=== PATIENT | male | born 1970 | race Hispanic/Latino ===

== ENCOUNTER 2019-05-05 09:49 | Emergency (ER) | payer BC ==
[~2019-05-05] VITALS: Ht 165.1 cm; Wt 99.8 kg
[~2019-05-05 09:49] MED LIST: HYDROCODON-ACE1 EAC3 PO
[2019-05-05] MEDS ORDERED: KETOROLAC TROMETHAMINE 30 MG/ML VIAL IV NR (10:00)
--- NOTE | 2019-05-05 10:05 | NUR ---
ekg done in triage
[2019-05-05] MEDS ORDERED: SODIUM CHLORIDE 0.9% 1000ML 1,000 ML IV STA (10:07)
[2019-05-05] MEDS ORDERED: LIDOCAINE VISC 2% SOLN 15 ML UDC PO NR (10:15)
[2019-05-05] MEDS ORDERED: PANTOPRAZOLE 40 MG 10ML VIAL IV NR (10:15)
[2019-05-05] MEDS ORDERED: MAGNESIUM/ALUMINUM/SIMETHICONE 30 ML UDC PO NR (10:15)
[2019-05-05] MEDS ORDERED: ONDANSETRON HCL INJ 2MG/ML 2ML 2 MG/ML VIAL IV NR (10:15)
[2019-05-05] MEDS: BELLADONNA ALK/PHENOBARBITAL 5 ML UDC PO SCH ×2 (10:33→10:34)
[2019-05-05 10:44] LABS: BASOPHILS # (AUTO) 0.1 (0.0-0.1); BASOPHILS % 0.6 % (0.0-1.0); EOSINOPHILS % 0.2 % (0.0-6.0); HEMATOCRIT 47.3 % (38.2-49.6); LYMPHOCYTES # (AUTO) 1.5 (1.0-3.2); MEAN CORPUSCULAR HEMOGLOBIN 28.4 pg (28-32); MEAN CORPUSCULAR HGB CONC 33.8 g/dL (31-35); MONOCYTES # (AUTO) 0.2 (0.2-0.8); NEUTROPHILS # (AUTO) 6.2 (2.1-6.9); NEUTROPHILS % 76.5 % (38.7-80.0); PLATELET COUNT 237 x10e3/uL (140-360); RED BLOOD COUNT 5.63 x10e6/uL (4.3-5.7)
[2019-05-05 11:06] LABS: ALANINE AMINOTRANSFERASE 69 IU/L (0-55); ALBUMIN 4.8 g/dL (3.5-5.0); ALBUMIN/GLOBULIN RATIO 1.7 (0.8-2.0); ALKALINE PHOSPHATASE 61 IU/L (40-150); AMYLASE 53 U/L (25-125); ANION GAP 12.8 mmol/L (8-16); BLOOD UREA NITROGEN 13 mg/dL (7-26); BUN/CREATININE RATIO 13 (6-25); CALCIUM 9.7 mg/dL (8.4-10.2); CARBON DIOXIDE 24 mmol/L (22-29); CHLORIDE 108 mmol/L (98-107); CREATININE, SERUM 0.97 mg/dL (0.72-1.25); EST GLOMERULAR FILTRATION RATE > 60 ML/MIN (60-); GLUCOSE 130 mg/dL (74-118); LIPASE 29 U/L (8-78); POTASSIUM 4.8 mmol/L (3.5-5.1); SODIUM 140 mmol/L (136-145)
--- NOTE | 2019-05-05 12:19 | NUR ---
BUSINESS MANAGEMENT CONSULTANT AT BEDSIDE
--- NOTE | 2019-05-05 12:57 | Diagnostic Imaging Report ---
EXAM: Gallbladder Ultrasound INDICATION: ^ABD PAIN ^Y COMPARISON: None. TECHNIQUE: Transverse and longitudinal images of the gallbladder were obtained. FINDINGS: Liver: Limited view of the liver demonstrates hepatic steatosis Gallbladder: Stones/Sludge: None Wall: 0.2 cm Appearance: No wall thickening, pericholecystic fluid or hydrops. Sonographic Anaya's Sign: Negative Bile Ducts: Intrahepatic Ducts: No dilatation Extrahepatic Ducts: Common bile duct measures 0.4 cm, no dilatation Free Fluid: No ascites or pleural effusion IMPRESSION: Normal gallbladder. Hepatic steatosis. Signed by: Alexandre Diaz MD on 05/05/2019 12:55 PM
[2019-05-05] MEDS ORDERED: MORPHINE SULFATE INJ 4 MG/ML INJ 1ML IV NR (13:15)
--- NOTE | 2019-05-05 13:45 | NUR ---
2ND SET CARDIAC ENZYMES COMPLETED, TAKEN TO LAB
[2019-05-05 14:01] LABS: CREATINE KINASE 293 IU/L (30-200)
[2019-05-05] MEDS ORDERED: SODIUM CHLORIDE 0.9% 50ML 50 ML ONE (14:17)
[2019-05-05] MEDS ORDERED: IOPAMIDOL 370 MG/ML 200 ML INFUS..BTL INJ ONE (14:17)
--- NOTE | 2019-05-05 15:08 | Diagnostic Imaging Report ---
EXAM: CT Abdomen and Pelvis WITH contrast INDICATION: ruq pain COMPARISON: None. TECHNIQUE: Abdomen and pelvis were scanned utilizing a multidetector helical scanner from the lung base to the pubic symphysis after administration of IV contrast. Coronal and sagittal reformations were obtained. Dose modulation, iterative reconstruction, and/or weight based adjustment of the mA/kV was utilized to reduce the radiation dose to as low as reasonably achievable. Routine protocol was performed. Scan was performed when during portal venous phase. IV CONTRAST: 150 mL of Omnipaque 300 ORAL CONTRAST: Water COMPLICATIONS: None RADIATION DOSE: Total DLP: 883.76 mGy-cm Estimated effective dose: (DLP x 0.015 x size factor) mSv CTDIvol has been reviewed. It is below the limits set by the Radiation Protocol Committee (RPC). FINDINGS: LINES and TUBES: None. LOWER THORAX: There is left basilar subsegmental atelectasis. HEPATOBILIARY: The liver is diffuse hypodense compared to the spleen, consistent with diffuse hepatic diffuse hepatic steatosis. No focal hepatic lesions. No biliary ductal dilation. GALLBLADDER: No radio-opaque stones or sludge. No wall thickening. SPLEEN: No splenomegaly. PANCREAS: No focal masses or ductal dilatation. ADRENALS: No adrenal nodules KIDNEYS/URETERS: Kidneys enhance symmetrically. No hydronephrosis. No cystic or solid mass lesions. No stones. GI TRACT: No abnormal distention, wall thickening, or evidence of bowel obstruction. Appendix is normal. PELVIC ORGANS/BLADDER: Unremarkable. LYMPH NODES: No lymphadenopathy. VESSELS: Unremarkable. PERITONEUM / RETROPERITONEUM: No free air or fluid. BONES: Old fracture deformity of the left ischium. Screw fixation of left sacroiliac joint. SOFT TISSUES: Unremarkable. IMPRESSION: Hepatic steatosis with no focal lesion. Signed by: Alexandre Diaz MD on 05/05/2019 3:05 PM
[2019-05-05] MEDS ORDERED: DICYCLOMINE HCL 20 MG/2 ML VIAL IM ONE (15:30)
== END 2019-05-05 16:09 | disposition home or self-care (01) ==
LOC: ER 09:49
DX: R10.11 Right upper quadrant pain (principal); R11.0 Nausea
CPT/HCPCS: 36415; 74177; 76705; 80053; 82150; 82550; 82553; 83690; 84484; 85025; 93005; 99284; C9113; J0500; J1885; J2270; J2405; J7030; Q9967

== ENCOUNTER → 2019-05-14 | Outpatient (CLI) | payer BC ==
--- NOTE | 2019-05-14 20:08 | Diagnostic Imaging Report ---
HEPATOBILIARY SCAN INDICATION: Upper abdominal pain Report: Following the administration of 6.6 mCi of Tc-99m mebrofenin, dynamic images of the abdomen in the anterior projection were obtained through 60 minutes. Additional static images were obtained at 1.5, 2 and 2.5 hours. Perfusion of the liver is normal. Extraction of tracer from the blood pool by the liver parenchyma is normal. Tracer appears promptly with in the biliary tract. Tracer is seen in the small bowel by 35 minutes post injection of the radiotracer. The gallbladder does not fill during the initial 60-minute dynamic sequence and does not fill through 2.5 hours. Impression: Absence of filling of the gallbladder through 2.5 hours post administration of the radiotracer supports the clinical diagnosis of chronic and/or acute cholecystitis. Signed by: Dr. Darline Ireland M.D. on 05/14/2019 8:05 PM
== END ==
LOC: NM 12:32
PROVIDERS: ATTEND Internal Medicine Gastroenterology
DX: R10.10 Upper abdominal pain, unspecified (principal)
CPT/HCPCS: 78226; A9537; 78227

== ENCOUNTER 2019-05-25 15:21 | Inpatient (IN) | payer BC ==
[2019-05-24 14:48] LABS: BASOPHILS # (AUTO) 0.1 (0.0-0.1); BASOPHILS % 0.6 % (0.0-1.0); EOSINOPHILS # (AUTO) 0.3 (0.0-0.4); EOSINOPHILS % 2.4 % (0.0-6.0); HEMATOCRIT 42.2 % (38.2-49.6); HEMOGLOBIN 14.3 g/dL (14.0-18.0); LYMPHOCYTES # (AUTO) 3.5 (1.0-3.2); LYMPHOCYTES % 32.7 % (18.0-39.1); MEAN CORPUSCULAR HEMOGLOBIN 28.3 pg (28-32); MEAN CORPUSCULAR HGB CONC 33.9 g/dL (31-35); MEAN CORPUSCULAR VOLUME 83.4 fL (81-99); MONOCYTES # (AUTO) 0.5 (0.2-0.8); MONOCYTES % 4.6 % (4.4-11.3); NEUTROPHILS # (AUTO) 6.4 (2.1-6.9); NEUTROPHILS % 59.2 % (38.7-80.0); PLATELET COUNT 371 x10e3/uL (140-360); RED BLOOD COUNT 5.06 x10e6/uL (4.3-5.7); RED CELL DISTRIBUTION WIDTH 12.3 % (11.7-14.4)
[2019-05-24 15:05] LABS: ALANINE AMINOTRANSFERASE 44 IU/L (0-55); ALBUMIN 4.3 g/dL (3.5-5.0); ALBUMIN/GLOBULIN RATIO 1.3 (0.8-2.0); ALKALINE PHOSPHATASE 66 IU/L (40-150); BLOOD UREA NITROGEN 16 mg/dL (7-26); BUN/CREATININE RATIO 20 (6-25); CALCIUM 9.6 mg/dL (8.4-10.2); CARBON DIOXIDE 24 mmol/L (22-29); CHLORIDE 105 mmol/L (98-107); EST GLOMERULAR FILTRATION RATE > 60 ML/MIN (60-); GLUCOSE 86 mg/dL (74-118); SODIUM 137 mmol/L (136-145)
--- NOTE | 2019-05-24 15:31 | Diagnostic Imaging Report ---
EXAMINATION: CHEST 2 VIEWS INDICATION: ^PREOP COMPARISON: None FINDINGS: PA and lateral views TUBES and LINES: None. LUNGS: Lungs are well inflated. Lungs are clear. There is no evidence of pneumonia or pulmonary edema. PLEURA: No pleural effusion or pneumothorax. HEART AND MEDIASTINUM: The cardiomediastinal silhouette is unremarkable. BONES AND SOFT TISSUES: No acute osseous lesion. Soft tissues are unremarkable. UPPER ABDOMEN: No free air under the diaphragm. IMPRESSION: No acute thoracic radiographic abnormality. Signed by: Desean Acevedo MD on 05/24/2019 3:28 PM
[~2019-05-25] VITALS: Ht 165.1 cm; Wt 99.1 kg
[~2019-05-25 15:21] MED LIST changes: +BUPIVACAINE 0.25% 30ML SDV INJ ONE; +DEXAMETHASONE SOD PHOS INJ 4 MG/ML VIAL ONE; +FENTANYL CITRATE/PF 100MCG/2 ML INJ ONE; +HYDROMORPHONE 1MG/1ML INJ IV PRN; +LIDOCAINE HCL 2% LOCAL INJ 5 ML SDV VIAL INJ ONE; +MIDAZOLAM HCL 2 MG/2 ML VIAL ONE; +NAPROXEN250 MG PO; +NEXIUM40 MG PO; +ONDANSETRON HCL INJ 2MG/ML 2ML 2 MG/ML VIAL IV PRN; +ONDANSETRON HCL INJ 2MG/ML 2ML 2 MG/ML VIAL ONE; +PROPOFOL IV EMULSION 10 MG/ML 20 ML VIAL ONE; +ROCURONIUM BROMIDE 10 MG/ML 5ML VIAL ONE; +SEVOFLURANE INHAL SOLN 250 ML PEN BTL ONE; +SIMVASTATIN20 MG PO; +SUGAMMADEX SODIUM 200 MG/2 ML VIAL IV ONE
--- OUTSIDE RECORDS SUMMARY | 2019-05-25 15:24 | XMS REPORT ---
Author Author [facility] Address Unknown Phone Unavailable Care Team Providers Care Clinical Transplant Coordinator Name Role Phone Lelo CORONA Unavailable Unavailable LA[facility] JOSEPH Unavailable Unavailable Priyank DOMINGUEZ LAIDANDRE Unavailable Unavailable Problems This patient has no known problems. Allergies, Adverse Reactions, Alerts This patient has no known allergies or adverse reactions. Medications This patient has no known medications. Results Test Description Test Time Test Comments Text Results Atomic Results Result Comments CHEST 2 VIEWS 2019-05-24 15:26:00 [place] [address] Patient Name: SAIGE HENDRICKSON MR #: [id number] : 1970 Age/Sex: 49/M Req #: [id number] Adm Physician: Ordered by: ZAHIRA CORONA MD Report #: [id number] Location: OR Room/Bed: Procedure: [id number] DX/CHEST 2 VIEWS Exam Date: Exam Time: REPORT STATUS: Signed EXAMINATION: CHEST 2 VIEWS INDICATION: PREOP COMPARISON: None FINDINGS: PA and lateral views TUBES and LINES: None. LUNGS: Lungs are well inflated. Lungs are clear. There is no evidence of pneumonia or pulmonary edema. PLEURA: No pleural effusion or pneumothorax. HEART AND MEDIASTINUM: The cardiomediastinal silhouette is unremarkable. BONES AND SOFT TISSUES: No acute osseous lesion. Soft tissues are unremarkable. UPPER ABDOMEN: No free air under the diaphragm. IMPRESSION: No acute thoracic radiographic abnormality. Signed by: Brandon Fernandes MD on 05/24/2019 3:28 PM Dictated By: BRANDON FERNANDES MD 27 Transcribed By: JESSE on 05/24/191527 COPY TO: ZAHIRA CORONA MD HEPTOBILIARY 2019-05-14 20:02:00 [place] [address] Patient Name: SAIGE HENDRICKSON MR #: [id number] : 1970 Age/Sex: 49/M Req #: [id number] Adm Physician: Ordered by: LA[place] JO[facility] MD Report #: [id number] Location: ID Room/Bed: Procedure: [id number] NM/HEPTOBILIARY Exam Date: 05/14/19 Exam Time: 1343 REPORT STATUS: Signed HEPATOBILIARY SCAN INDICATION: Upper abdominal pain Report: Following the administration of 6.6 mCi of Tc-99m mebrofenin, dynamic images of the abdomen in the anterior projection were obtained through 60 minutes. Additional static images were obtained at 1.5, 2 and 2.5 hours. Perfusion of the liver is normal. Extraction of tracer from the blood pool by the liver parenchyma is normal. Tracer appears promptly with in the biliary tract. Tracer is seen in the small bowel by 35 minutes post injection of the radiotracer. The gallbladder does not fill during the initial 60- minute dynamic sequence and does not fill through 2.5 hours. Impression: Absence of filling of the gallbladder through 2.5 hours post administration of the radiotracer supports the clinical diagnosis of chronic and/or acute cholecystitis. Signed by: Dr. Dinora Ireland M.D. on 05/14/2019 8:05 PM Dictated By: DINORA IRELAND MD 04 Transcribed By: JESSE on 05/14/192004 COPY TO: LA[facility] JO[facility] MD CT ABDOMEN/PELVIS W 2019-05-05 14:57:00 [place] [address] Patient Name: SAIGE HENDRICKSON MR #: [id number] : 1970 Age/Sex: 48/M Req #: [id number] Adm Physician: Ordered by: ROBBY GONZALEZ AREA SUPERVISOR Report #: [id number] Location: ER Room/Bed: Procedure: [id number] CT/CT ABDOMEN/PELVIS W Exam Date: 05/05/19 Exam Time: 1355 REPORT STATUS: Signed EXAM: CT Abdomen and Pelvis WITH contrast INDICAT ION: ruq pain COMPARISON: None. TECHNIQUE: Abdomen and pelvis were scanned utilizing a multidetector helical scanner from the lung base to the pubic symphysis after administration of IV contrast. Coronal and sagittal reformations were obtained. Dose modulation, iterative reconstruction, and/or weight based adjustment of the mA/kV was utilized to reduce the radiation dose to as low as reasonably achievable. Routine protocol was performed. Scan was performed when during portal venous phase. IV CONTRAST: 150 mL of Omnipaque 300 ORAL CONTRAST: Water COMPLICATIONS: None RADIATION DOSE: Total DLP: 883.76 mGy-cm Estimated effective dose: (DLP x 0.015 x size factor) mSv CTDIvol has been reviewed. It is below the limits set by the Radiation Protocol Committee (RPC). FINDINGS: LINES and TUBES: None. LOWER THORAX: There is left basilar subsegmental atelectasis. HEPATOBILIARY: The liver is diffuse hypodense compared to the spleen, consistent with diffuse hepatic diffuse hepatic steatosis. No focal hepatic lesions. No biliary ductal dilation. GALLBLADDER: No radio-opaque stones or sludge. No wall thickening. SPLEEN: No splenomegaly. PANCREAS: No focal masses or ductal dilatation. ADRENALS: No adrenal nodules KIDNEYS/URETERS: Kidneys enhance symmetrically. No hydronephrosis. No cystic or solid mass lesions. No stones. GI TRACT: No abnormal distention, wall thickening, or evidence of bowel obstruction. Appendix is normal. PELVIC ORGANS/BLADDER: Unremarkable. LYMPH NODES: No lymphadenopathy. VESSELS: Unremarkable. PERITONEUM / RETROPERITONEUM: No free air or fluid. BONES: Old fracture deformity of the left ischium. Screw fixation of left sacroiliac joint. SOFT TISSUES: Unremarkable. IMPRESSION: Hepatic steatosis with no focal lesion. Signed by: Alexandre Rubio MD on 05/05/2019 3:05 PM Dictated By: ALEXANDRE RUBIO MD 1505 Transcribed By: JESSE on 05/05/19 1505 COPY TO: ROBBY GONZALEZ AREA SUPERVISOR GALLBLADDER 2019-05-05 12:52:00 [place] [address] Patient Name: SAIGE HENDRICKSON MR #: [id number] : 1970 Age/Sex: 48/M Req #: [id number] Adm Physician: Ordered by: ROBBY GONZALEZ AREA SUPERVISOR Report #: [id number] Location: ER Room/Bed: Procedure: [id number] US/US GALLBLADDER Exam Date: 05/05/19 Exam Time: 1205 REPORT STATUS: Signed EXAM: Gallbladder Ultrasound INDICATION: ABD PAIN Y COMPARISON: None. TECHNIQUE: Transverse and longitudinal images of the gallbladder were obtained. FINDINGS: Liver: Limited view of the liver demonstrates hepatic steatosis Gallbladder: Stones/Sludge: None Wall: 0.2 cm Appearance: No wall thickening, pericholecystic fluid or hydrops. Sonographic Anaya's Sign: Negative Bile Ducts: Intrahepatic Ducts: No dilatation Extrahepatic Ducts: Common bile duct measures 0.4 cm, no dilatation Free Fluid: No ascites or pleural effusion IMPRESSION: Normal gallbladder. Hepatic steatosis. Signed by: Alexandre Rubio MD on 05/05/2019 12:55 PM Dictated By: ALEXANDRE RUBIO MD 1255 Transcribed By: JESSE on 05/05/19 1255 COPY TO: ROBBY GONZALEZ NP
[2019-05-25] MEDS ORDERED: FENTANYL CITRATE/PF 100MCG/2 ML INJ ONE (15:34)
[2019-05-25 16:10] VITALS: BP 144/89
[2019-05-25] MEDS: SODIUM CHLORIDE 0.9% 1000ML 1,000 ML IV SCH (17:51)
[2019-05-25] MEDS: PIPER-TAZ 3.375 GM 50 ML IV SCH (17:51)
[2019-05-25] MEDS: METRONIDAZOLE 500MG/NS 100ML 100 ML IV SCH ×2 (17:51→23:20)
[2019-05-25] MEDS: PANTOPRAZOLE 40 MG 10ML VIAL IV SCH (17:51)
[2019-05-25] MEDS: ACETAMINOPHEN 1000 MG/100 ML IV PRN (17:52)
[2019-05-25 20:00] VITALS: BP 142/96
--- NOTE | 2019-05-25 21:29 | Operative Report ---
DATE OF PROCEDURE: 05/25/2019 SURGEON: Janak Boothe MD PREOPERATIVE DIAGNOSES: Cholecystitis and cholelithiasis. POSTOPERATIVE DIAGNOSES: Acute purulent cholecystitis and cholelithiasis. OPERATION PERFORMED: Laparoscopic cholecystectomy. ASSISTANTS: Dr. Marc Boothe and LETA Hernandez. ANESTHESIA: General. COMPLICATIONS: None. ESTIMATED BLOOD LOSS: Minimal. DESCRIPTION OF PROCEDURE: With the patient lying in bed in the supine position under good general endotracheal anesthesia, the abdomen was prepped with Betadine solution and draped in the usual manner. A Veress needle was introduced into the umbilicus, and pneumoperitoneum was established without any difficulty. An 11-mm trocar was placed into the umbilicus and a 10-mm video laparoscope was placed into the intra-abdominal cavity. Under direct vision, three 5-mm trocars were placed in the right subcostal region and extra 5-mm trocar was placed in the left upper abdomen. Laparoscopy at this point revealed gallbladder was totally covered with thick fibrous adhesions. These were removed from the top of the gallbladder. The top of the gallbladder could be seen to be thickened and inflamed consistent with acute purulent cholecystitis. The gallbladder was then decompressed with a needle, so that we could grasp it. After this was done, the adhesions to the gallbladder were then slowly and carefully taken down. The duodenum and transverse colon were totally plastered to the gallbladder, but we were nonetheless . We were very careful to make sure that there was no injury. After this was done, a large stone was impacted at the neck of the gallbladder causing all of the inflammatory process, which obviously has been going on for a significant period of time. The peritoneum overlying the neck of the gallbladder was then opened and the cystic duct was identified. The cystic duct was followed to its junction with the common duct. The cystic duct was then circumferentially dissected away from the common duct, doubly clipped, and divided. The cystic artery was similarly doubly clipped and divided. The gallbladder was then slowly and carefully taken off the liver bed using the cautery scissors. The gallbladder bed was very much inflamed. There was not much of posterior wall to the gallbladder, and there was a lot of adhesions, especially towards the top of the gallbladder. The part of the liver was actually entered into, but the gallbladder was totally and completely removed from the liver bed, placed in a pouch, and removed through the umbilicus after enlarging the umbilical incision. Laparoscopy was then again carried out. Hemostasis was ascertained. The whole area was thoroughly irrigated, and all the excess fluid was aspirated. A SurgiSeal was left in the liver bed. A #10 flat Mani-Gonzalez drain was then brought out through the most lateral trocar port and left in the hepatorenal fossa, and the pneumoperitoneum was then evacuated and all the trocars were removed under direct vision. The midline fascia at the umbilicus was then closed with 2 [id number] #0 Vicryl. All layers were infiltrated on the way out with solution of 0.25% Marcaine. The subcutaneous tissue was approximated with 3-0 Vicryl, and the skin was closed with subcuticular 5-0 Vicryl. Benzoin, Steri-Strips, and Band-Aids were applied. The sponge, lap, and needle count was correct. The patient tolerated the procedure well and returned to the recovery room in stable condition. MD JESÚS Aguilar/NURIS /[id number]
[2019-05-25 21:30] VITALS: BP 142/96
[2019-05-26] VITALS (8 sets, daily range): BP systolic 109–138; BP diastolic 61–86
[2019-05-26] MEDS: PIPER-TAZ 3.375 GM 50 ML IV SCH ×4 (00:01→18:30)
[2019-05-26] MEDS: SODIUM CHLORIDE 0.9% 1000ML 1,000 ML IV SCH ×3 (00:49→20:49)
[2019-05-26] MEDS: METRONIDAZOLE 500MG/NS 100ML 100 ML IV SCH ×5 (05:23→23:15)
[2019-05-26 06:30] LABS: BASOPHILS % 0.2 % (0.0-1.0); EOSINOPHILS % 0.1 % (0.0-6.0); HEMATOCRIT 38.9 % (38.2-49.6); HEMOGLOBIN 12.8 g/dL (14.0-18.0); LYMPHOCYTES # (AUTO) 2.1 (1.0-3.2); MEAN CORPUSCULAR HEMOGLOBIN 28.1 pg (28-32); MEAN CORPUSCULAR HGB CONC 32.9 g/dL (31-35); MEAN CORPUSCULAR VOLUME 85.3 fL (81-99); MONOCYTES # (AUTO) 0.7 (0.2-0.8); MONOCYTES % 5.2 % (4.4-11.3); NEUTROPHILS # (AUTO) 9.7 (2.1-6.9); NEUTROPHILS % 77.2 % (38.7-80.0); PLATELET COUNT 353 x10e3/uL (140-360); RED BLOOD COUNT 4.56 x10e6/uL (4.3-5.7); RED CELL DISTRIBUTION WIDTH 12.6 % (11.7-14.4)
[2019-05-26 06:44] LABS: ANION GAP 8.9 mmol/L (8-16); BLOOD UREA NITROGEN 12 mg/dL (7-26); BUN/CREATININE RATIO 15 (6-25); CALCIUM 8.6 mg/dL (8.4-10.2); CARBON DIOXIDE 27 mmol/L (22-29); CHLORIDE 109 mmol/L (98-107); EST GLOMERULAR FILTRATION RATE > 60 ML/MIN (60-); GLUCOSE 111 mg/dL (74-118); POTASSIUM 3.9 mmol/L (3.5-5.1); SODIUM 141 mmol/L (136-145)
--- NOTE | 2019-05-26 07:04 | NUR ---
Received patient lying in bed with eyes open. OLGA drain on RLQ in placed, intact with serosanguineous output noted. Respiration even and unlabored without SOB. Call light in reach.
[2019-05-26] MEDS: ACETAMINOPHEN 1000 MG/100 ML IV PRN (11:16)
--- NOTE | 2019-05-26 12:45 | NUR ---
Ordered given by Dr. Nataliya Boothe to place patient in full liquid diet.
[2019-05-26] MEDS: PANTOPRAZOLE 40 MG 10ML VIAL IV SCH (16:43)
[2019-05-26] MEDS: HYDROCODONE/APAP 7.5MG-325MG 1 EA TAB PO PRN ×2 (18:30→23:15)
--- NOTE | 2019-05-26 19:01 | NUR ---
WALKING ROUNDS PERFORMED, RECEIVED PT SITTING IN RECLINER WITH FAMILY AT SIDE. PT IS AAOX3, RR EVEN AND NON-LABORED, ON ROOM AIR. NO S/SX OF DISTRESS NOTED. DRESSING TO ANTERIOR ABD NOTED TO BE CDI. LEFT PT SITTING IN RECLINER, CALL LIGHT AND PHONE WITHIN REACH.
--- NOTE | 2019-05-26 19:08 | NUR ---
Report given to second shift supervisor. Respiration even and unlabored without SOB. Call light in reach.
--- NOTE | 2019-05-26 20:21 | NUR ---
NOTIFIED RESPIRATORY OF NEED FOR INCENTIVE SPIROMETER.
--- NOTE | 2019-05-26 21:23 | NUR ---
PT AMBULATING IN [place] WITH FAMILY AT SIDE, STEADY GAIT NOTED.
[2019-05-27] VITALS (8 sets, daily range): BP systolic 129–157; BP diastolic 72–97
[2019-05-27] MEDS: PIPER-TAZ 3.375 GM 50 ML IV SCH ×4 (00:24→18:08)
[2019-05-27] MEDS: SODIUM CHLORIDE 0.9% 1000ML 1,000 ML IV SCH ×2 (03:10→17:11)
[2019-05-27] MEDS: METRONIDAZOLE 500MG/NS 100ML 100 ML IV SCH ×4 (04:37→23:19)
[2019-05-27 05:26] LABS: BASOPHILS # (AUTO) 0.1 (0.0-0.1); BASOPHILS % 0.5 % (0.0-1.0); EOSINOPHILS # (AUTO) 0.2 (0.0-0.4); HEMATOCRIT 38.2 % (38.2-49.6); HEMOGLOBIN 12.4 g/dL (14.0-18.0); LYMPHOCYTES # (AUTO) 3.5 (1.0-3.2); LYMPHOCYTES % 33.6 % (18.0-39.1); MEAN CORPUSCULAR HEMOGLOBIN 28.3 pg (28-32); MEAN CORPUSCULAR HGB CONC 32.5 g/dL (31-35); MEAN CORPUSCULAR VOLUME 87.2 fL (81-99); MONOCYTES # (AUTO) 0.6 (0.2-0.8); MONOCYTES % 5.9 % (4.4-11.3); NEUTROPHILS # (AUTO) 6.1 (2.1-6.9); NEUTROPHILS % 57.6 % (38.7-80.0); PLATELET COUNT 277 x10e3/uL (140-360); RED BLOOD COUNT 4.38 x10e6/uL (4.3-5.7); RED CELL DISTRIBUTION WIDTH 12.9 % (11.7-14.4)
[2019-05-27 05:50] LABS: BLOOD UREA NITROGEN 10 mg/dL (7-26); BUN/CREATININE RATIO 11 (6-25); CALCIUM 8.4 mg/dL (8.4-10.2); CARBON DIOXIDE 26 mmol/L (22-29); CHLORIDE 107 mmol/L (98-107); CREATININE, SERUM 0.89 mg/dL (0.72-1.25); EST GLOMERULAR FILTRATION RATE > 60 ML/MIN (60-); GLUCOSE 97 mg/dL (74-118); SODIUM 140 mmol/L (136-145)
--- NOTE | 2019-05-27 07:00 | NUR ---
BEDSIDE SHIFT REPORT RECEIVED FROM GAS PLUMBER NURSE. PT DENIES NEEDS AT THIS TIME.
[2019-05-27] MEDS: PANTOPRAZOLE 40 MG 10ML VIAL IV SCH (17:11)
[2019-05-27] MEDS: BISACODYL 10 MG SUPP PR SCH (18:08)
[2019-05-27] MEDS: HYDROCODONE/APAP 7.5MG-325MG 1 EA TAB PO PRN (21:16)
[2019-05-28] VITALS (9 sets, daily range): BP systolic 138–174; BP diastolic 73–99
[2019-05-28] MEDS: PIPER-TAZ 3.375 GM 50 ML IV SCH ×5 (00:30→23:25)
[2019-05-28] MEDS: HYDROCODONE/APAP 7.5MG-325MG 1 EA TAB PO PRN ×2 (03:02→23:25)
[2019-05-28] MEDS: METRONIDAZOLE 500MG/NS 100ML 100 ML IV SCH ×3 (05:23→20:14)
--- NOTE | 2019-05-28 05:31 | NUR ---
PAGE PLACED FOR MD Nataliya CORONA CONCERNING PT CHANGE IN COLOR IN OLGA DRAIN DRAINAGE. AMOUNT INCREASED AND COLOR CHANGED FROM SEROSANGUINEOUS TO YELLOW/BROWN. NO SMELL NOTED. PT REPORTS PAIN IS A BURNING PAIN TO LOWER ANTERIOR ABD. WAITING FOR CALLBACK.
[2019-05-28 05:59] LABS: BASOPHILS % 0.4 % (0.0-1.0); EOSINOPHILS # (AUTO) 0.2 (0.0-0.4); EOSINOPHILS % 2.2 % (0.0-6.0); HEMATOCRIT 41.4 % (38.2-49.6); HEMOGLOBIN 13.5 g/dL (14.0-18.0); LYMPHOCYTES # (AUTO) 3.2 (1.0-3.2); MEAN CORPUSCULAR HEMOGLOBIN 28.1 pg (28-32); MEAN CORPUSCULAR HGB CONC 32.6 g/dL (31-35); MEAN CORPUSCULAR VOLUME 86.1 fL (81-99); MONOCYTES # (AUTO) 0.8 (0.2-0.8); MONOCYTES % 7.6 % (4.4-11.3); NEUTROPHILS % 58.6 % (38.7-80.0); PLATELET COUNT 330 x10e3/uL (140-360); RED BLOOD COUNT 4.81 x10e6/uL (4.3-5.7); RED CELL DISTRIBUTION WIDTH 12.5 % (11.7-14.4)
[2019-05-28 06:18] LABS: ALANINE AMINOTRANSFERASE 46 IU/L (0-55); ALBUMIN/GLOBULIN RATIO 1.3 (0.8-2.0); ALKALINE PHOSPHATASE 62 IU/L (40-150); ANION GAP 9.7 mmol/L (8-16); BLOOD UREA NITROGEN 8 mg/dL (7-26); BUN/CREATININE RATIO 9 (6-25); CALCIUM 9.2 mg/dL (8.4-10.2); CARBON DIOXIDE 28 mmol/L (22-29); CHLORIDE 104 mmol/L (98-107); EST GLOMERULAR FILTRATION RATE > 60 ML/MIN (60-); GLUCOSE 108 mg/dL (74-118); POTASSIUM 3.7 mmol/L (3.5-5.1); SODIUM 138 mmol/L (136-145)
--- NOTE | 2019-05-28 07:00 | NUR ---
RECD PATIENT IN BED ALERT AND ORIENTED NO DISTRESS NOTED AWARE OF SIDUATION AWAITING NEW ORDERS
--- NOTE | 2019-05-28 07:10 | NUR ---
REPORT GIVEN TO ONCOMING SHIFT, PASSED IN REPORT ABOUT INCREASE IN OLGA DRAIN DRAINAGE WITH CHANGE IN COLOR AND TEXTURE. PT TO REMAIN NPO TILL MD Nataliya COROAN CAN EVALUATE THE PATIENT AND CONTINUE TO MONITOR OLGA DRAIN OUTPUT.
[2019-05-28] MEDS: BISACODYL 10 MG SUPP PR SCH (08:00)
--- NOTE | 2019-05-28 08:00 | NUR ---
DR DAN GAVE ORDERS FOR NPO, HIDA SCAN AND CT
[2019-05-28] MEDS ORDERED: SODIUM CHLORIDE 0.9% 50ML 50 ML ONE (09:21)
[2019-05-28] MEDS ORDERED: IOPAMIDOL 370 MG/ML 200 ML INFUS..BTL INJ ONE (09:21)
--- NOTE | 2019-05-28 09:49 | NUR ---
NEW SL STARTED TO LEFT AC 20 GAUGE 1XSTICK PT TOLERATED WELL. LEFT FLOOR FOR CT SCAN OLGA EMPTIED OF TOTAL 70CC SO FAR THIS MORNING, HERRING BROWN CLEAR WATERY FLUID WITH SMALL AMOUNT OF SEMI SOLID
--- NOTE | 2019-05-28 11:56 | Diagnostic Imaging Report ---
EXAM: CT Abdomen and Pelvis WITH intravenous contrast INDICATION: Abdominal pain COMPARISON: None. TECHNIQUE: Abdomen and pelvis were scanned utilizing a multidetector helical scanner from the lung base to the pubic symphysis after administration of IV contrast. Coronal and sagittal reformations were obtained. Routine protocol was performed. Scan was performed during portal venous phase. IV CONTRAST: 100mL of Isovue 370 ORAL CONTRAST: None RADIATION DOSE: Total DLP: 763 mGy*cm Dose modulation, iterative reconstruction, and/or weight based adjustment of the mA/kV was utilized to reduce the radiation dose to as low as reasonably achievable. FINDINGS: LOWER THORAX: Bibasilar dependent subsegmental atelectasis. Mild scattered coronary artery atherosclerotic calcification. HEPATOBILIARY: Mild diffuse hepatic steatosis. No focal liver lesion. No intrahepatic biliary ductal dilation. Status post recent cholecystectomy. Postoperative changes and Surgifoam packing material in the operative bed. No focal drainable fluid collection. Surgical OLGA drain courses along the right lateral aspect of the liver and terminates along the inferior edge of the liver. SPLEEN: No splenomegaly. PANCREAS: No focal masses or ductal dilatation. ADRENALS: No adrenal nodules. KIDNEYS/URETERS: No hydronephrosis, stones, or solid mass lesions. PELVIC ORGANS/BLADDER: Unremarkable. PERITONEUM / RETROPERITONEUM: No free air or fluid. LYMPH NODES: No lymphadenopathy. VESSELS: Unremarkable. GI TRACT: Diverticulosis without CT evidence of diverticulitis. No abnormal bowel thickening. No bowel obstruction. Normal appendix. BONES AND SOFT TISSUES: No acute osseous injury. No suspicious lytic or blastic lesions. Postoperative findings of screw fixation traversing the left sacroiliac joint. Old healed left pubic fractures. IMPRESSION: Postoperative findings of recent cholecystectomy with surgical packing in the cholecystectomy bed. No organized drainable fluid collection. Surgical drain terminates along the inferior edge of the liver. Mild diffuse hepatic steatosis. Signed by: Fior Ocasio MD on 05/28/2019 11:53 AM
[2019-05-28] MEDS: SODIUM CHLORIDE 0.9% 1000ML 1,000 ML IV SCH ×2 (12:21→20:14)
[2019-05-28] MEDS: PANTOPRAZOLE 40 MG 10ML VIAL IV SCH (17:21)
--- NOTE | 2019-05-28 18:58 | NUR ---
WALKING ROUNDS PERFORMED, RECEIVED PT LAYING SEMI FOWLERS IN BED, AAOX3, RR EVEN AND NON-LABORED, ON ROOM AIR. NO S/SX OF DISTRESS NOTED. LEFT PT LAYING SEMI FOWLERS IN BED, BED IN LOW LOCKED POSITION, SIDE RAILS UPX2, CALL LIGHT AND PHONE WITHIN REACH.
--- NOTE | 2019-05-28 19:23 | Diagnostic Imaging Report ---
ADDENDUM #1 At time of original report on 05/28/2019, incomplete clinical information was provided. Revised indication: S/p laparoscopic cholecystectomy on 05/25/2019. Persistent abdominal pain. Evaluate for bile leak. Thick fluid in surgical drain. Pertinent findings: No tracer is seen along the edge of the liver, in the right or left paracolic gutters or free within the peritoneal cavity. The tracer that appears in the gallbladder fossa at 36 minutes post injection of tracer may represent a small bile leak. Revised impression: 1. Disregard the impression given in the original report. 2. Strongly suspect very small slow bile leak into the gallbladder fossa. No tracer is seen moving from the gallbladder fossa into the peritoneal cavity, however, a very small leak from the gallbladder fossa may difficult to detect given the slow appearance of tracer in the gallbladder fossa. Signed by: Dr. Darline Ireland M.D. on 05/29/2019 1:07 PM ORIGINAL REPORT EXAM: HIDA Scan INDICATION: Abdominal pain Report: Following the administration of 6.6 mCi of Tc-99m mebrofenin, dynamic images of the abdomen in the anterior projection were obtained through 60 minutes. Perfusion of the liver is normal. Extraction of tracer from the blood pool by the liver parenchyma is normal. Tracer appears promptly with in the biliary tract. Tracer is seen in the gallbladder by 36 minutes post injection of the radiotracer. Tracer is seen in the small bowel by 8 minutes. Impression: Filling of the gallbladder excludes acute cystic duct obstruction/acute cholecystitis. Signed by: Dr. Darline Ireland M.D. on 05/28/2019 7:20 PM
--- NOTE | 2019-05-28 19:27 | NUR ---
PAGE PLACED FOR MD Nataliya CORONA CONCERNING HIDA SCAN RESULTS. WAITING FOR CALLBACK.
--- NOTE | 2019-05-28 19:38 | NUR ---
SPOKE WITH MD Nataliya CORONA, RESULTS FOR HIDA SCAN REPORTS THAT THE GALLBLADDER WAS FILLING, AND PT HAD GB REMOVED ON 05/24, REQUESTED I SPEAK WITH RADIOLOGY CONCERNING RESULTS. RADIOLOGY NOT ANSWERING PHONES, NOTIFIED CHARGE NURSE.
--- NOTE | 2019-05-28 19:44 | NUR ---
SPOKE WITH PINKED EDGE SEWING MACHINE OPERATOR CONCERNING HIDA SCAN RESULTS. WAITING FOR CALLBACK FOR NUMBER TO NUCLEAR MED TECH OR PHYSICIAN.
--- NOTE | 2019-05-28 22:01 | NUR ---
SPOKE WITH FIXED INCOME TRADING VICE PRESIDENT CONCERNING HIDA SCAN RESULTS. WAS INFORMED THEY TRIED TO CALL THE NUC MED PHYSICIAN AND NO ANSWER, THEY THEN TRIED TO GET IN TOUCH WITH THE NUC MED TECH WITH NO ANSWER. INFORMED SOLUTIONS SPECIALIST OF NEED TO TALK TO NEC MED PHYSICIAN ABOUT RESULTS SAYING GALLBLADDER WHEN THE PATIENT DOES NOT HAVE ONE. HOUSE SUP WILL ESCALATE SITUATION. WILL CONTINUE TO WAIT FOR RESPONSE.
--- NOTE | 2019-05-28 22:12 | NUR ---
WAS INFORMED BY HOUSES CAD DESIGNER THAT LAKE TREADWELL, MODERN DANCER, WOULD CALL MD Nataliya CORONA DIRECTLY TO DISCUSS HIDA SCAN RESULTS.
--- NOTE | 2019-05-28 22:41 | NUR ---
LAKE TREADWELL SPOKE WITH MD Nataliya CORONA AND INFORMED HER HE WOULD LIKE NUC MED TO REVIEW HIDA SCAN IN THE MORNING AND HE WILL TALK TO THEM THEN.
[2019-05-29] VITALS (11 sets, daily range): BP systolic 125–149; BP diastolic 69–96
[2019-05-29] MEDS: METRONIDAZOLE 500MG/NS 100ML 100 ML IV SCH ×4 (02:01→19:22)
[2019-05-29] MEDS: PIPER-TAZ 3.375 GM 50 ML IV SCH ×3 (05:13→17:07)
[2019-05-29 07:23] LABS: BASOPHILS % 0.4 % (0.0-1.0); EOSINOPHILS # (AUTO) 0.3 (0.0-0.4); HEMATOCRIT 40.3 % (38.2-49.6); HEMOGLOBIN 13.1 g/dL (14.0-18.0); LYMPHOCYTES # (AUTO) 2.4 (1.0-3.2); MEAN CORPUSCULAR HEMOGLOBIN 27.8 pg (28-32); MEAN CORPUSCULAR HGB CONC 32.5 g/dL (31-35); MEAN CORPUSCULAR VOLUME 85.6 fL (81-99); MONOCYTES # (AUTO) 0.8 (0.2-0.8); MONOCYTES % 7.4 % (4.4-11.3); NEUTROPHILS # (AUTO) 7.1 (2.1-6.9); NEUTROPHILS % 66.8 % (38.7-80.0); PLATELET COUNT 292 x10e3/uL (140-360); RED BLOOD COUNT 4.71 x10e6/uL (4.3-5.7); RED CELL DISTRIBUTION WIDTH 12.3 % (11.7-14.4)
[2019-05-29 07:54] LABS: ALANINE AMINOTRANSFERASE 54 IU/L (0-55); ALBUMIN 3.5 g/dL (3.5-5.0); ALBUMIN/GLOBULIN RATIO 1.2 (0.8-2.0); ALKALINE PHOSPHATASE 56 IU/L (40-150); ANION GAP 10.8 mmol/L (8-16); BLOOD UREA NITROGEN 11 mg/dL (7-26); BUN/CREATININE RATIO 11 (6-25); CARBON DIOXIDE 28 mmol/L (22-29); CHLORIDE 106 mmol/L (98-107); EST GLOMERULAR FILTRATION RATE > 60 ML/MIN (60-); GLUCOSE 91 mg/dL (74-118); POTASSIUM 3.8 mmol/L (3.5-5.1); SODIUM 141 mmol/L (136-145)
[2019-05-29] MEDS: SODIUM CHLORIDE 0.9% 1000ML 1,000 ML IV SCH (09:02)
[2019-05-29] MEDS: PANTOPRAZOLE 40 MG 10ML VIAL IV SCH (17:07)
[2019-05-30] VITALS (7 sets, daily range): BP systolic 134–152; BP diastolic 92–96
[2019-05-30] MEDS: PIPER-TAZ 3.375 GM 50 ML IV SCH ×3 (00:17→12:30)
[2019-05-30] MEDS ORDERED: DIPHENOXYLATE/ATROPINE TAB PO STA (00:32)
[2019-05-30] MEDS ORDERED: DIPHENOXYLATE/ATROPINE TAB PO PRN ×2 (00:45→16:45)
[2019-05-30] MEDS: METRONIDAZOLE 500MG/NS 100ML 100 ML IV SCH ×3 (01:32→14:32)
[2019-05-30] MEDS: SODIUM CHLORIDE 0.9% 1000ML 1,000 ML IV SCH (04:48)
[2019-05-30 05:59] LABS: BASOPHILS % 0.4 % (0.0-1.0); EOSINOPHILS # (AUTO) 0.4 (0.0-0.4); EOSINOPHILS % 3.8 % (0.0-6.0); HEMATOCRIT 39.7 % (38.2-49.6); HEMOGLOBIN 13.2 g/dL (14.0-18.0); LYMPHOCYTES # (AUTO) 2.8 (1.0-3.2); LYMPHOCYTES % 27.5 % (18.0-39.1); MEAN CORPUSCULAR HEMOGLOBIN 27.9 pg (28-32); MEAN CORPUSCULAR HGB CONC 33.2 g/dL (31-35); MEAN CORPUSCULAR VOLUME 83.9 fL (81-99); MONOCYTES # (AUTO) 0.6 (0.2-0.8); NEUTROPHILS # (AUTO) 6.4 (2.1-6.9); NEUTROPHILS % 61.9 % (38.7-80.0); PLATELET COUNT 321 x10e3/uL (140-360); RED BLOOD COUNT 4.73 x10e6/uL (4.3-5.7); RED CELL DISTRIBUTION WIDTH 12.2 % (11.7-14.4)
[2019-05-30 06:22] LABS: ALANINE AMINOTRANSFERASE 55 IU/L (0-55); ALBUMIN 3.5 g/dL (3.5-5.0); ALBUMIN/GLOBULIN RATIO 1.2 (0.8-2.0); ALKALINE PHOSPHATASE 61 IU/L (40-150); ANION GAP 12.8 mmol/L (8-16); BLOOD UREA NITROGEN 9 mg/dL (7-26); BUN/CREATININE RATIO 10 (6-25); CALCIUM 8.8 mg/dL (8.4-10.2); CARBON DIOXIDE 24 mmol/L (22-29); CHLORIDE 107 mmol/L (98-107); CREATININE, SERUM 0.92 mg/dL (0.72-1.25); EST GLOMERULAR FILTRATION RATE > 60 ML/MIN (60-); GLUCOSE 85 mg/dL (74-118); POTASSIUM 3.8 mmol/L (3.5-5.1); SODIUM 140 mmol/L (136-145)
--- NOTE | 2019-05-30 14:55 | NUR ---
Nutrition Screen Note RD Recommendation for Physician: -Recommend to advance diet when medically appropriate Plan of Care: RD following, monitoring for tolerance and adequacy Nutrition reason for involvement: Length of stay Primary Diagnose(s): acute cholecystitis PMH: no H/P in [facility] at this time Ht: 65 in Wt:218 lb BMI: 36.4 kg/m2 IBW:[address] Assessment: (05/29) Chart reviewed. Labs and meds reviewed. Pt is a 49 year old male admitted with acute cholecystitis. Pt had a lap cholecystectomy on 05/24. Pt reports he is tolerating the liquid diet but has been having diarrhea. Prior to admission, pt reports eating all of his meals. No N/V. Pt was unsure of any weight loss but stated he usually weighs 216 lbs. Pt currently has a weight of 218 lbs in chart. Will continue to monitor. Current Diet: clear liquids Malnutrition Evaluation (05/30/19) The patient does not meet criteria for a specified degree of malnutrition at this time. Will re-evaluate at follow-up as appropriate. Diet Education Needs Assessment: Diet education not indicated at this time. Pt is on a temporary/transition diet Nutrition Care Level: low Signed: Bebe Terrell, RD, LD
[2019-05-30] MEDS: PANTOPRAZOLE 40 MG 10ML VIAL IV SCH (17:30)
--- NOTE | 2019-05-30 19:37 | NUR ---
PATIENT'S DISCHARGE COMPLETE. iv REMOVED. PRESCRIPTIONS AND DISCHARGE INSTRUCTIONS GIVEN TO PATIENT'S . PATIENT AND BOTH DENIED ANY QUESTIONS. CLEAR ON FOLLOW UP INSTRUCTIONS. PATIENT AMBULATED OFF UNIT WITH IN STABLE CONDITION.
== END 2019-05-30 19:39 | disposition home or self-care (01) | DRG 419 ==
LOC: OR 15:21 → PACU V 15:25 → MED/SURG 15:55
PROVIDERS: ADMIT Surgery; ATTEND Surgery
PROC: 0FT44ZZ Resection of Gallbladder, Percutaneous Endoscopic Approach (ICD-10-PCS; principal; 2019-05-25 13:00)
DX: K80.00 Calculus of gallbladder with acute cholecystitis without obstruction (principal); K82.8 Other specified diseases of gallbladder; Z88.1 Allergy status to other antibiotic agents; Z88.8 Allergy status to other drugs, medicaments and biological substances; I10 Essential (primary) hypertension
CPT/HCPCS: 36415; 71046; 74177; 78226; 80048; 80053; 85025; 88304; 93005; A9537; C1766; J1100; J1170; J2001; J2250; J2405; J2543; J3010; J7030; Q9967